=== PATIENT | male | born 1955 | race Caucasian/White ===

== ENCOUNTER 2016-08-23 10:11 | Emergency (ER) | payer BC ==
[~2016-08-23] VITALS: Ht 182.9 cm; Wt 104.5 kg
[~2016-08-23 10:11] MED LIST: LAMI250T; TESTIN
[2016-08-23 10:30] VITALS: BP 126/100; PULSE 64; RESP 20; TEMP 98.6; O2SAT 97
--- NOTE | 2016-08-23 10:40 | PD ---
HPI . left knee pain Chief Complaint: Injury Time Seen by Provider: 10:40 Travel History International Travel<30 days: No Contact w/Intl Traveler<30days: No Traveled to known affect area: No History of Present Illness HPI 61-year-old male with hypertension here with complaints of left knee pain. Patient had injury about 2 weeks ago and has been trying to self treat at home. He says he had initially gotten better, and then decided to start doing squats and reinjured his knee. He is now telling me that he has pain on the left knee medial aspect. He is ambulatory and has no joint instability. He has tried ibuprofen without much relief. He recently moved here and has not yet established with primary care provider. PFSH Past Medical History Hx Anticoagulant Therapy: No Cardiovascular Problems: Yes (HTN) Chemotherapy: No Cerebrovascular Accident: No Diabetes: No Respiratory: No Social History Alcohol Use: Yes (OCC.) Tobacco Use: No Allergies-Medications (Allergen,Severity, Reaction): Coded Allergies: Penicillin (Verified Allergy, Mild, Hives, 10/02/05) Reported Meds & Prescriptions Reported Meds & Active Scripts Active Medrol Dosepak (Methylprednisolone) 4 Mg Dspk 4 Mg PO DIRECTED Per Pharmacist direction Reported [Testin 1% Topical] Review of Systems General / Constitutional: No: Fever Eyes: No: Visual changes HENT: No: Headaches Cardiovascular: No: Chest Pain or Discomfort Respiratory: No: Shortness of Breath Gastrointestinal: No: Abdominal Pain Genitourinary: No: Dysuria Musculoskeletal: Positive: Pain (left knee pain) Skin: No Rash Neurologic: No: Weakness Psychiatric: No: Depression Endocrine: No: Polydipsia Hematologic/Lymphatic: No: Easy Bruising Physical Exam Narrative GENERAL: AAO x 3, no acute distress, Well-nourished, well-developed patient. SKIN: Warm and dry. No visible rashes or bruising. HEAD: Normocephalic and atraumatic. EYES: No scleral icterus. No injection or drainage. ENT: No nasal drainage noted. Mucous membranes pink. Airway patent. NECK: Supple, trachea midline. No JVD. CARDIOVASCULAR: Regular rate and rhythm without murmurs, gallops, or rubs. RESPIRATORY: Breath sounds equal bilaterally. No accessory muscle use. No rhonchi or rales. GASTROINTESTINAL: visual inspection normal EXTREMITIES: No cyanosis or edema. full rom of left and right knee. crepitus bilaterally. Negative Shauna and Oscar. No joint instability left knee. BACK: Nontender without obvious deformity. No CVA tenderness. PSYCH: AAO x 3, normal affect. Data Data Last Documented VS Vital Signs Date Time Temp Pulse Resp B/P Pulse Ox O2 Delivery O2 Flow Rate FiO2 08/23/16 10:30 98.6 64 20 126/100 97 Room Air MDM Medical Decision Making Medical Screen Exam Complete: Yes Emergency Medical Condition: Yes Medical Record Reviewed: Yes Differential Diagnosis left knee pain likely related to meniscus, internal derangement of knee, less likely knee fracture Narrative Course This is a 61 year-old male with acute knee pain secondary recent injury 2 weeks ago. He has full range of motion of his knee. My index of suspicion for a fracture is very low. I've advised him that unfortunately I do not believe x-ray imaging as indicated. I will go ahead and treat him with some steroids for inflammation. He will need to establish with his primary care provider for further workup and treatment. Advised no strenuous exercise or activity. I advised to wear brace at home. Patient verbalized understanding of instructions, questions were answered, and thanked me for their care. I advised them if their condition worsens, please return to the nearest emergency room for further care. Diagnosis Primary Impression: Left knee pain Qualified Code: M25.562 - Acute pain of left knee Patient Instructions: General Instructions Additional Instructions: Rest the affected area as much as possible. Ice this area for 15-20 minutes at a time. You can do this every hour or as much as tolerated. Keep this area compressed (jt bandage/knee brace) as tolerated. Do not sleep with knee brace. Elevate this area. Use ibuprofen as needed for pain and inflammation. Limit strenuous exercise. Please return to emergency department if your symptoms return or worsen. Follow up with your primary care provider. Take medications as prescribed. Med/Other Pt SpecificInfo: Prescription(s) given Scripts Methylprednisolone Dosepak (Medrol Dosepak)4 Mg Dspk4 Mg PO DIRECTED #1 DSPK Ref 0 Per Pharmacist direction Prov:Beatriz Crzu MD 08/23/16 Disposition: 01 DISCHARGE HOME Condition: Stable Leonila Angel August 23, 2016 10:40
[2016-08-23] MEDS ORDERED: MEDR4PAK PO (10:47)
== END 2016-08-23 11:15 | disposition home or self-care (01) ==
LOC: NEPK 10:11
DX: M25.562 Pain in left knee (principal); I10 Essential (primary) hypertension; X58.XXXA Exposure to other specified factors, initial encounter; Y93.B9 Activity, other involving muscle strengthening exercises; Y92.9 Unspecified place or not applicable; Y99.8 Other external cause status
CPT/HCPCS: 99283